=== PATIENT | male | born 1930 | race Caucasian/White ===

== ENCOUNTER 2017-11-28 15:59 | Inpatient (IN) | payer MEDICARE ==
[~2017-11-28] VITALS: Ht 180.3 cm; Wt 87.1 kg
--- NOTE | 2017-11-28 16:09 | NUR ---
PT IS IN ROOM #2B. DR GODOY EVALUATED THE PT. PT IS RESTING IN BED UNDER DIRECT SUPERVISION OF SHANELLE FARIA. NO S/S OF ACUTE DISTRESS AT THIS TIME.
--- NOTE | 2017-11-28 17:16 | NUR ---
REPORT GIVEN TO RN MHU. PT WAS TRANSFERED TO ROOM #145A.
[2017-11-28] MEDS ORDERED: MAG HYDROX/AL HYDROX/SIMETH 30 ML LIQUID UDC PO PRN (20:15)
[2017-11-28] MEDS: DIVALPROEX SPRINKLE 125 MG CAP.SPRINK PO SCH (20:41)
[2017-11-28] MEDS: LORAZEPAM 1 MG TABLET PO PRN (20:41)
[2017-11-28] MEDS: RIVASTIGMINE TARTRATE 1.5 MG CAPSULE PO SCH (20:41)
[2017-11-28 21:12] VITALS: BP 118/61
--- NOTE | 2017-11-28 21:45 | NUR ---
GPS: Admiited to unit earlier an 87 yr.old male under the care of in stable condition. Pt.is currently on a 72 hour hold for DTO/DTS/GD. Pt.is confused,disoriented and disorganized. No aggressive behavior noted. Belongings list completed. Resp constitution party made aware of pts.arrival to the unit(Hernan-grandson). Safe environment provided. Will continue to monitor behavior.
[2017-11-29 07:30] VITALS: BP 139/64
[2017-11-29] MEDS: RIVASTIGMINE TARTRATE 1.5 MG CAPSULE PO SCH ×2 (08:21→20:23)
[2017-11-29] MEDS: DIVALPROEX SPRINKLE 125 MG CAP.SPRINK PO SCH ×2 (08:21→20:23)
[2017-11-29 15:33] VITALS: BP 138/69
--- NOTE | 2017-11-29 16:23 | NUR ---
Initial DC Plan: Patient currently lives at home with his grandchildren [[address] [place] [address]; [phone]]. SW spoke with patient's granddaughter Lara [[phone]] who stated she would like patient to go to an [facility] or SNF upon discharge. KIMMIE will follow up with MD, patient, and patient's family to discuss most appropriate discharge plans. SW will form a safe and proper discharge.
[2017-11-29 20:19] VITALS: BP 145/74
[2017-11-29] MEDS: TEMAZEPAM 7.5 MG CAPSULE PO PRN (22:26)
[2017-11-30 08:00] VITALS: BP 165/70
[2017-11-30] MEDS: DIVALPROEX SPRINKLE 125 MG CAP.SPRINK PO SCH ×2 (08:56→20:16)
[2017-11-30] MEDS: LORAZEPAM 1 MG TABLET PO PRN ×3 (08:56→17:24)
[2017-11-30] MEDS: RIVASTIGMINE TARTRATE 1.5 MG CAPSULE PO SCH ×2 (08:56→20:16)
[2017-11-30 13:17] VITALS: BP 115/75
[2017-11-30 16:33] VITALS: BP 111/77
[2017-11-30 20:00] VITALS: BP 118/44
[2017-11-30] MEDS: QUETIAPINE FUMARATE 25 MG TABLET PO SCH (20:16)
[2017-12-01 07:27] LABS: BASOPHILS # (AUTO) 0.1 K/uL (0.0-8.0); BASOPHILS % (AUTO) 0.8 % (0.0-2.0); EOSINOPHILS # (AUTO) 0.4 K/uL (0.0-0.7); EOSINOPHILS % (AUTO) 4.9 % (0.0-7.0); HEMATOCRIT 43.6 % (36.7-47.1); LYMPHOCYTES % (AUTO) 25.6 % (20.5-51.5); MEAN CORPUSCULAR HEMOGLOBIN 30.5 uug (23.8-33.4); MEAN CORPUSCULAR HGB CONC 34 g/dL (32.5-36.3); MEAN CORPUSCULAR VOLUME 88.8 fL (73.0-96.2); MONOCYTES # (AUTO) 0.8 K/uL (2.0-10.0); MONOCYTES % (AUTO) 10.8 % (0.0-11.0); NEUTROPHILS # (AUTO) 4.5 K/uL (1.8-8.9); NEUTROPHILS % (AUTO) 57.9 % (38.5-71.5); PLATELET COUNT (AUTO) 227 K/uL (152-348); RED BLOOD CELL COUNT(AUTO) 4.92 MIL/uL (4.06-5.63); WHITE BLOOD COUNT (AUTO) 7.8 K/uL (3.6-10.2)
[2017-12-01 07:30] VITALS: BP 100/64
[2017-12-01 07:34] LABS: ALANINE AMINOTRANSFERASE 40 U/L (16-63); ALKALINE PHOSPHATASE 62 U/L (50-136); ASPARTATE AMINOTRANSFERASE 31 U/L (15-37); BILIRUBIN,TOTAL 0.8 mg/dL (0.2-1.0); CARBON DIOXIDE 27 mmol/L (21-32); CHLORIDE 105 mmol/L (98-107); CREATININE 0.9 mg/dL (0.6-1.3); GLUCOSE 95 mg/dL (74-106); MAGNESIUM 2.2 mg/dL (1.8-2.4); POTASSIUM 3.8 mmol/L (3.5-5.1); TOTAL PROTEIN, SERUM 7.2 g/dL (6.4-8.2); UREA NITROGEN, BLOOD 20 mg/dL (7-18); VALPROIC ACID 24 ug/mL (50-100)
[2017-12-01] MEDS: DIVALPROEX SPRINKLE 125 MG CAP.SPRINK PO SCH ×2 (08:43→20:59)
[2017-12-01] MEDS: LORAZEPAM 1 MG TABLET PO PRN ×2 (08:43→23:55)
[2017-12-01] MEDS: RIVASTIGMINE TARTRATE 1.5 MG CAPSULE PO SCH ×2 (08:43→20:59)
[2017-12-01] MEDS: QUETIAPINE FUMARATE 25 MG TABLET PO PRN (12:48)
[2017-12-01 16:43] VITALS: BP 157/72
[2017-12-01] MEDS ORDERED: PNEUMOCOCCAL 23-VAL P-SAC VAC 0.5 ML VIAL IM ONE (18:15)
[2017-12-01 20:20] VITALS: BP 109/50
[2017-12-01] MEDS: QUETIAPINE FUMARATE 25 MG TABLET PO SCH (20:59)
[2017-12-02 07:30] VITALS: BP 156/69
[2017-12-02] MEDS: RIVASTIGMINE TARTRATE 1.5 MG CAPSULE PO SCH ×2 (08:05→20:10)
[2017-12-02] MEDS: DIVALPROEX SPRINKLE 125 MG CAP.SPRINK PO SCH ×2 (08:05→20:10)
[2017-12-02] MEDS: HYDROCORTISONE 1% OINT 28.35 GM TUBE TOP SCH ×2 (10:49→20:10)
[2017-12-02] MEDS: ACETAMINOPHEN 325 MG TABLET PO PRN (12:36)
[2017-12-02] MEDS: LORAZEPAM 1 MG TABLET PO PRN ×2 (12:36→22:55)
[2017-12-02] MEDS: QUETIAPINE FUMARATE 25 MG TABLET PO PRN (17:11)
[2017-12-02 17:18] VITALS: BP 123/52
[2017-12-02] MEDS: risperiDONE 0.25 MG TABLET PO SCH (20:10)
[2017-12-02] MEDS: QUETIAPINE FUMARATE 25 MG TABLET PO SCH (20:10)
[2017-12-02 20:19] VITALS: BP 151/70
[2017-12-03] MEDS: MAGNESIUM HYDROXIDE 30 ML LIQUID UDC PO PRN ×2 (05:43→21:55)
[2017-12-03 07:30] VITALS: BP 167/77
[2017-12-03] MEDS: risperiDONE 0.25 MG TABLET PO SCH ×2 (08:21→20:55)
[2017-12-03] MEDS: ACETAMINOPHEN 325 MG TABLET PO PRN (08:21)
[2017-12-03] MEDS: DIVALPROEX SPRINKLE 125 MG CAP.SPRINK PO SCH ×2 (08:21→20:55)
[2017-12-03] MEDS: HYDROCORTISONE 1% OINT 28.35 GM TUBE TOP SCH ×2 (08:21→20:56)
[2017-12-03] MEDS: RIVASTIGMINE TARTRATE 1.5 MG CAPSULE PO SCH ×2 (08:21→20:55)
[2017-12-03] MEDS: QUETIAPINE FUMARATE 25 MG TABLET PO PRN (13:44)
[2017-12-03 17:01] VITALS: BP 136/84
[2017-12-03] MEDS: LORAZEPAM 1 MG TABLET PO PRN (17:35)
[2017-12-03 19:30] VITALS: BP 112/86
[2017-12-03] MEDS: QUETIAPINE FUMARATE 25 MG TABLET PO SCH (20:55)
[2017-12-04] MEDS: TEMAZEPAM 7.5 MG CAPSULE PO PRN (01:28)
[2017-12-04] MEDS: RIVASTIGMINE TARTRATE 1.5 MG CAPSULE PO SCH ×2 (09:16→20:13)
[2017-12-04] MEDS: DIVALPROEX SPRINKLE 125 MG CAP.SPRINK PO SCH ×2 (09:16→20:13)
[2017-12-04] MEDS: risperiDONE 0.25 MG TABLET PO SCH ×2 (09:16→20:13)
[2017-12-04] MEDS: HYDROCORTISONE 1% OINT 28.35 GM TUBE TOP SCH ×2 (09:16→20:14)
--- NOTE | 2017-12-04 13:37 | NUR ---
GPS/RN- patient assisted to bathroom, large bowel movement and voided. patient is two person assist. weak gait.
[2017-12-04] MEDS ORDERED: Z GUARD REMEDY PASTE 57 GM TUBE TOP PRN (15:00)
[2017-12-04 16:13] VITALS: BP 140/67
[2017-12-04] MEDS: LORAZEPAM 1 MG TABLET PO PRN (16:54)
[2017-12-04] MEDS: CLOTRIMAZOLE 1% CREAM 30 GM TUBE TOP SCH (17:35)
[2017-12-04] MEDS: QUETIAPINE FUMARATE 25 MG TABLET PO SCH (20:13)
[2017-12-04] MEDS: Z GUARD REMEDY PASTE 57 GM TUBE TOP SCH (20:14)
[2017-12-04 20:23] VITALS: BP 115/61
--- NOTE | 2017-12-05 05:47 | NUR ---
Received Pt in karel-chair next to the nurse's station. A+Ox1 to self only, confused, disoriented, disorganized, and forgetful. Requires constant redirection for safety, Pt attempts to get out of bed or his chair frequently without assistance, risk for falls d/t weak, unsteady gait. Pt is delusional and responds to internal stimuli at times. Two minor episodes of restlessness throughout the shift, redirection provided. Rash noted to (B) posterior knees, cortisone cream applied as ordered. Compliant with crushed medications. VS stable, no c/o pain, in no acute distress.
[2017-12-05 07:30] VITALS: BP 127/51
[2017-12-05] MEDS: RIVASTIGMINE TARTRATE 1.5 MG CAPSULE PO SCH ×2 (08:58→20:16)
[2017-12-05] MEDS: risperiDONE 0.25 MG TABLET PO SCH ×2 (08:58→20:17)
[2017-12-05] MEDS: DIVALPROEX SPRINKLE 125 MG CAP.SPRINK PO SCH ×2 (08:58→20:17)
[2017-12-05] MEDS: HYDROCORTISONE 1% OINT 28.35 GM TUBE TOP SCH ×2 (08:58→20:19)
[2017-12-05] MEDS: Z GUARD REMEDY PASTE 57 GM TUBE TOP SCH ×2 (08:59→20:17)
[2017-12-05] MEDS: CLOTRIMAZOLE 1% CREAM 30 GM TUBE TOP SCH ×2 (08:59→16:21)
[2017-12-05 15:22] VITALS: BP 133/56
--- NOTE | 2017-12-05 15:25 | NUR ---
Gps/Supervisor Sleeping Bag Department- Patient ambulated by [facility] 2 staff assisting using front wheel waker. Needed assist with his meals, fluids offered .reddenes areas, bumps, rashes left upper arm, cream applied as ordered. back of legs, redness, kept clean and dry, heel floated whe on his bed.,safety reviewed emphasized.
[2017-12-05] MEDS: QUETIAPINE FUMARATE 25 MG TABLET PO SCH (20:16)
[2017-12-05 20:55] VITALS: BP 115/78
--- NOTE | 2017-12-06 06:15 | NUR ---
GPS: REMAIN CALM AND COOPERATIVE WITH CARE AND MEDICATION. REMAIN CONFUSED AND DISORIENTED. ASSISTED WITH ADL'S.GOOD FABIAN CARE GIVEN. SLEPT 8 HRS THROUGH THE NIGHT. NO BEHAVIOR PROBLEM NOTED AT THIS TIME. CONTINUE PLAN OF CARE.
[2017-12-06 07:30] VITALS: BP 148/72
[2017-12-06] MEDS: RIVASTIGMINE TARTRATE 1.5 MG CAPSULE PO SCH (08:05)
[2017-12-06] MEDS: DIVALPROEX SPRINKLE 125 MG CAP.SPRINK PO SCH (08:05)
[2017-12-06] MEDS: risperiDONE 0.25 MG TABLET PO SCH (08:05)
[2017-12-06] MEDS: HYDROCORTISONE 1% OINT 28.35 GM TUBE TOP SCH (08:05)
[2017-12-06] MEDS: Z GUARD REMEDY PASTE 57 GM TUBE TOP SCH (08:06)
[2017-12-06] MEDS: CLOTRIMAZOLE 1% CREAM 30 GM TUBE TOP SCH (08:06)
--- NOTE | 2017-12-06 11:07 | NUR ---
DC Note: Patient will be discharged to [facility] [[address] [place] [address]; ] via ambulance. Tracy from [facility] came to assess patient and confirmed they can accept patient at the facility today. Patient is confused, but calm. SW spoke with patient's granddaughter Lara Gray [[phone]] who is aware and agreeable to discharge plans. Patient will follow up with Dr. Cook (Bunk Assembler) and Dr. Vera (Psychiatrist) at the facility.
--- NOTE | 2017-12-06 15:07 | NUR ---
Gps/Ultrasound Supervisor- Called [facility], report was given to Nurse Coleman. , patient assigned in be .
[2017-12-06] MEDS: LORAZEPAM 1 MG TABLET PO PRN (15:14)
--- NOTE | 2017-12-06 15:53 | NUR ---
Firearms Report: KIMMIE submitted Mental Health Report to [facility] on 12/06.
[2017-12-06 15:57] VITALS: BP 141/65
--- NOTE | 2017-12-06 16:07 | NUR ---
Gps/Division Roadmaster- Discharged to [facility] via ambulance, patient in no distress, in good spirit, denies pain no discomfort. All belongings given back to patient(eye glasses, clothes,while tennis shoes) . no complaints , report was given to [place] Nurse at [facility] pt. assigned to room 11-A.
== END 2017-12-06 16:12 | DRG 885 ==
LOC: ER 16:05 → GPS 18:30
PROVIDERS: ADMIT Psychiatry & Neurology Psychiatry; ATTEND Internal Medicine
PROC: 0HBRXZZ Excision of Toe Nail, External Approach (ICD-10-PCS; principal; 2017-12-03)
DX: F39 Unspecified mood [affective] disorder (principal); F03.90 Unspecified dementia, unspecified severity, without behavioral disturbance, psychotic disturbance, mood disturbance, and anxiety; F41.9 Anxiety disorder, unspecified; L60.3 Nail dystrophy; R26.2 Difficulty in walking, not elsewhere classified; D69.2 Other nonthrombocytopenic purpura; F32.9 Major depressive disorder, single episode, unspecified
CPT/HCPCS: 36415; 71045; 80164; 83735; 85025; 90732; 93005; 97116; 97530; A4663